=== PATIENT | female | born 1945 | race African-American/Black ===

== ENCOUNTER → 2016-07-28 | Outpatient (CLI) | payer MEDICARE | LOC: OD 12:44 | PROVIDERS: ATTEND Physician Assistant | DX: R10.30 Lower abdominal pain, unspecified (principal); R05 Cough | CPT/HCPCS: 71020; 74020 ==

== ENCOUNTER → 2016-08-25 | Outpatient (CLI) | payer MEDICARE, OTHER | LOC: RAD 11:57 | PROVIDERS: ATTEND Physician Assistant | DX: R93.5 Abnormal findings on diagnostic imaging of other abdominal regions, including retroperitoneum (principal) | CPT/HCPCS: 76700; 93976 ==

== ENCOUNTER 2016-09-15 20:19 | Emergency (ER) | payer MEDICARE ==
[2016-09-15 22:10] VITALS: BP 136/89
--- NOTE | 2016-09-15 22:10 | ER Document Report ---
ED Medical Screen (RME) - General Chief Complaint: Head Injury without LOC Stated Complaint: FALL HEAD INJURY Time seen by provider: 22:07 Mode of Arrival: Wheelchair Information source: Relative Notes: 71-year-old female presents to ED for a "knot on her head ". states he walked outside and the patient fell out of her chair lift around 6:00 while he was outside. He states the patient always is in the chair does not walk. He states she looks like her normal self. She is alert and oriented able to answer questions. And she denies having a headache. states she is not on any blood thinners. Swollen area noted on the left top of her head it is tender to touch. The patient does deny headache. I have greeted and performed a rapid initial assessment of this patient. A comprehensive ED assessment and evaluation of the patient, analysis of test results and completion of medical decision making process will be conducted by an additional ED providers. TRAVEL OUTSIDE OF THE [place] IN LAST 30 DAYS: No - Related Data Allergies/Adverse Reactions: No Known Allergies Allergy (Verified 08/16/15 14:45) Past Medical History - Past Medical History Cardiac Medical History: Reports: Hx Hypertension Denies: Hx Coronary Artery Disease, Hx Heart Attack Pulmonary Medical History: Denies: Hx Asthma, Hx Bronchitis, Hx COPD, Hx Pneumonia Neurological Medical History: Denies: Hx Cerebrovascular Accident, Hx Seizures Endocrine Medical History: Reports: Hx Diabetes Mellitus Type 2 Malignancy Medical History: Reports: Hx Breast Cancer Musculoskeltal Medical History: Reports Hx Arthritis - Bilat knees and bilat feet Psychiatric Medical History: Reports: Hx Dementia Denies: Hx Depression Past Surgical History: Reports: Hx Cholecystectomy, Hx Mastectomy - left. Denies: Hx Kidney (Renal Surgery) - left nephrectomy - Immunizations Hx Diphtheria, Pertussis, Tetanus Vaccination: Yes
== END 2016-09-16 01:40 | disposition left against medical advice (07) ==
LOC: ER 20:19
DX: Z53.9 Procedure and treatment not carried out, unspecified reason (principal); S09.90XA Unspecified injury of head, initial encounter; W19.XXXA Unspecified fall, initial encounter
CPT/HCPCS: 99281

== ENCOUNTER → 2016-09-15 | Outpatient (CLI) | payer MEDICARE ==
[2016-09-15 14:15] LABS: HEMOGLOBIN 10.4 g/dL (12.0-15.5); HGB HCT DIFFERENCE -0.8; MEAN CORPUSCULAR HEMOGLOBIN 30.3 pg (27.0-33.4); MEAN CORPUSCULAR HGB CONC 32.5 g/dL (32.0-36.0); MEAN CORPUSCULAR VOLUME 93 fl (80-97); RED BLOOD COUNT 3.43 10^6/uL (3.72-5.28); RED CELL DISTRIBUTION WIDTH 15.9 % (11.5-14.0); WHITE BLOOD COUNT 7.1 10^3/uL (4.0-10.5)
[2016-09-15 14:37] LABS: ANION GAP 14 (5-19); BLOOD UREA NITROGEN 40 mg/dL (7-20); CALCIUM 9.9 mg/dL (8.4-10.2); CARBON DIOXIDE 19 mmol/L (22-30); CHLORIDE 114 mmol/L (98-107); CREATININE RESULT 2.89 mg/dL (0.52-1.25); GLUCOSE 119 mg/dL (75-110); POTASSIUM 5.2 mmol/L (3.6-5.0); SODIUM 147.1 mmol/L (137-145)
== END ==
LOC: OD 13:00
PROVIDERS: ATTEND Internal Medicine Nephrology
DX: E11.22 Type 2 diabetes mellitus with diabetic chronic kidney disease (principal); N18.4 Chronic kidney disease, stage 4 (severe); D64.9 Anemia, unspecified; E87.5 Hyperkalemia
CPT/HCPCS: 36415; 80048; 85027

== ENCOUNTER → 2017-04-08 | Outpatient (CLI) | payer MEDICARE ==
[2017-04-08 18:15] LABS: ALANINE AMINOTRANSFERASE 51 U/L (9-52); ALBUMIN 3.2 g/dL (3.5-5.0); ALKALINE PHOSPHATASE 125 U/L (38-126); ASPARTATE AMINO TRANSFERASE 42 U/L (14-36); BILIRUBIN,DIRECT 0.4 mg/dL (0.0-0.4); BILIRUBIN,TOTAL 0.5 mg/dL (0.2-1.3); CHOLESTEROL 101.69 mg/dL (0-200); Direct HDL 28 mg/dL (>40); TOTAL PROTEIN 6.6 g/dL (6.3-8.2); TRIGLYCERIDES 125 mg/dL (<150)
[2017-04-08 18:29] LABS: DIRECT LDL 45 mg/dL (<100)
== END ==
LOC: OD 16:16
PROVIDERS: ATTEND Family Medicine
DX: E11.22 Type 2 diabetes mellitus with diabetic chronic kidney disease (principal); N18.9 Chronic kidney disease, unspecified; D63.1 Anemia in chronic kidney disease; F03.90 Unspecified dementia, unspecified severity, without behavioral disturbance, psychotic disturbance, mood disturbance, and anxiety
CPT/HCPCS: 36415; 80061; 80076; 83036; 84443

== ENCOUNTER → 2017-05-11 | Outpatient (CLI) | payer MEDICARE ==
[2017-05-11 16:53] LABS: HEMATOCRIT 31.9 % (36.0-47.0); HEMOGLOBIN 10.5 g/dL (12.0-15.5); HGB HCT DIFFERENCE -0.4; MEAN CORPUSCULAR HEMOGLOBIN 31.6 pg (27.0-33.4); MEAN CORPUSCULAR HGB CONC 32.9 g/dL (32.0-36.0); MEAN CORPUSCULAR VOLUME 96 fl (80-97); RED BLOOD COUNT 3.32 10^6/uL (3.72-5.28); WHITE BLOOD COUNT 5.5 10^3/uL (4.0-10.5)
[2017-05-11 17:20] LABS: ANION GAP 12 (5-19); BLOOD UREA NITROGEN 45 mg/dL (7-20); CALCIUM 9.7 mg/dL (8.4-10.2); CARBON DIOXIDE 26 mmol/L (22-30); CHLORIDE 108 mmol/L (98-107); GLUCOSE 84 mg/dL (75-110); PHOSPHORUS 3.7 mg/dL (2.5-4.5); POTASSIUM 4.3 mmol/L (3.6-5.0)
== END ==
LOC: OD 15:04
PROVIDERS: ATTEND Internal Medicine Nephrology
DX: N18.4 Chronic kidney disease, stage 4 (severe) (principal); D64.9 Anemia, unspecified; E11.9 Type 2 diabetes mellitus without complications
CPT/HCPCS: 36415; 80048; 82728; 83540; 83550; 83970; 84100; 85027